=== PATIENT | female | born 1970 | race Caucasian/White ===

== ENCOUNTER 2022-07-17 19:22 | Emergency (ER) | payer OTHER ==
[~2022-07-17] VITALS: Ht 165.1 cm; Wt 83.9 kg
[2022-07-17] MEDS ORDERED: SUMA25 PO (23:17)
== END 2022-07-18 01:30 | disposition home or self-care (01) ==
LOC: ER 19:22
DX: S81.011A Laceration without foreign body, right knee, initial encounter (principal); F17.210 Nicotine dependence, cigarettes, uncomplicated; W22.8XXA Striking against or struck by other objects, initial encounter; Y93.01 Activity, walking, marching and hiking; Z91.041 Radiographic dye allergy status
CPT/HCPCS: 12002; 99282-25